=== PATIENT | male | born 1960 | race Caucasian/White ===

== ENCOUNTER 2023-07-23 19:38 | Emergency (ER) | payer OTHER, SELFPAY ==
[2023-07-23] VITALS (30 sets, daily range): BP systolic 100–139; BP diastolic 66–97; PULSE 78–96; RESP 14–28; TEMP 36.5; O2SAT 92–98; BMI 24.3
--- NOTE | 2023-07-23 19:51 | ED.CHESTPAI1 ---
HPI - Chest Pain General Chief Complaint: Chest Pain Stated Complaint: CHEST PAIN Time Seen by Provider: 07/23/23 19:46 Source: patient Mode of arrival: ambulance History of Present Illness HPI narrative: patient brought to ER by [facility] for chest pain. Patient has been drinking ETOH today and provides limited history. States he developed chest pain and then passed out. Past history of CABG and receives his care at [facility]. States he woke up and called 911. chest pain right anterior chest. He is also noted to have old ecchymosis lesions on his chest and left flank. He does not have any idea where these came from. He is not short of breath. No associated nausea or vomiting. MD complaint: Reports chest pain Pertinent past history: Reports coronary artery disease Related Data Home Medications Medication Instructions Recorded Confirmed aspirin 81 mg tablet,delayed 81 mg PO DAILY 07/23/23 07/23/23 release (Adult Aspirin Regimen) atorvastatin 80 mg tablet 80 mg PO QPM 07/23/23 07/23/23 carvedilol 3.125 mg tablet 3.125 mg PO BID 07/23/23 07/23/23 cholecalciferol (vitamin D3) 50 50 mcg PO DAILY 07/23/23 07/23/23 mcg (2,000 unit) capsule clopidogrel 75 mg tablet 75 mg PO DAILY 07/23/23 07/23/23 empagliflozin 25 mg tablet 25 mg PO QAM 07/23/23 07/23/23 hydroxyzine HCl 10 mg tablet 10 mg PO Q8H 07/23/23 07/23/23 isosorbide dinitrate 30 mg tablet 30 mg PO BID 07/23/23 07/23/23 loratadine 10 mg tablet (Allergy 10 mg PO DAILY 07/23/23 07/23/23 Relief (loratadine)) melatonin 3 mg capsule 3 mg PO DAILY 07/23/23 07/23/23 mirtazapine 30 mg tablet 30 mg PO DAILY 07/23/23 07/23/23 pantoprazole 40 mg tablet,delayed 40 mg PO QAM 07/23/23 07/23/23 release sacubitril 24 mg-valsartan 26 mg 1 tab PO BID 07/23/23 07/23/23 tablet tamsulosin 0.4 mg capsule 0.4 mg PO DAILY 07/23/23 07/23/23 Allergies Allergy/AdvReac Type Severity Reaction Status Date / Time Unable to Assess Allergy Verified 07/23/23 19:50 Review of Systems ROS Status of ROS 10 or more systems reviewed and unremarkable except as noted in history and below Cardiovascular Reports: chest pain PFSH PFS Social History Smoking status: Current every day smoker Exam Constitutional Vital Signs, click to edit/add: Last Vital Signs Temp 97.7 F 07/23/23 19:44 Pulse 81 07/23/23 19:44 Resp 15 07/23/23 19:44 BP 108/66 07/23/23 19:44 Pulse Ox 97 07/23/23 19:44 O2 Del Method Room Air 07/23/23 19:44 Common normals: no apparent distress (appears to be under the influence of alcohol. slow answers but appropriate), average body habitus and oriented x3 Eye Common normals: EOMs intact bilaterally, conjunctivae normal and no scleral icterus Chest Other: mild bruising right chest. chest wall is tender Respiratory Common normals: normal respiratory effort, no retractions, no use of accessory muscles and clear to auscultation bilaterally Cardio Common normals: regular rate, regular rhythm, S1 normal heart sound and S2 normal heart sound GI Common normals: Normal to inspection, nondistended, normoactive bowel sounds present, soft to palpation and non-tender Extremity Common normals: normal to inspection Neuro Common normals: oriented x3, CN's II-XII intact bilaterally, moves all extremities and no focal motor deficits Psych Appearance: grossly normal Course Vital Signs Vital signs: Vital Signs Temperature 97.7 F 07/23/23 19:44 Pulse Rate 81 07/23/23 19:44 Respiratory Rate 15 07/23/23 19:44 Blood Pressure 108/66 07/23/23 19:44 Pulse Oximetry 97 07/23/23 19:44 Oxygen Delivery Method Room Air 07/23/23 19:44 Temperature 97.7 F 07/23/23 19:44 Pulse Rate 81 07/23/23 19:44 Respiratory Rate 15 07/23/23 19:44 Blood Pressure 108/66 07/23/23 19:44 Pulse Oximetry 97 07/23/23 19:44 Oxygen Delivery Method Room Air 07/23/23 19:44 MDM - Chest Pain MDM Narrative Medical decision making narrative: patient presents after complaint of chest pain and syncope at home. Patient intoxicated and history limited. Girlfriend arrived later and reports that he dranks 1-2 fifths of alcohol daily. [facility] that [facility] has [facility]. States she often sees him fall when he is intoxicated at home. He was noted to have old ecchymotic bruising on his chest and abdomen and was not able to tell of why. CT abdomen without acute findings but did demonstrate contusion. CTA chest with findings of findings concerning for sequela of reflux esophagitis or GE wall lesion. Also findings of bronchitis/brronchiolitis and remote and recent rib fractures. recent rib fractures on the right that explain his complaint of right sided rib pain. EKG with LBBB. d-dimer elevated but CTA without PE. first troponin normal. alcohol level 279 and he has mild elevation of his ammonia level. In the time he has been in the department he is awake and communicating the entire time and joking with his girlfriend that he was just approved for 100% [facility] disability Discussed with the patient and his girlfriend the plan to place him in the hospital over night because he reported passing out. Girlfriend is certain he just fell again. His right chest wall pain is related to rib fracture He is not wanting to stay in the hospital. States he [facility] and will discuss with the [facility] also advised him and his girlfriend that he will need follow up regarding his esophagus . Given rocephin for his aspiration bronchitis/bronchiolitis and discharged home with a prescription for Ceftin Lab Data Labs: Lab Results 07/23/23 07/23/23 Range/Units 20:11 21:35 WBC 4.8 (4.0-11.0) 10^3/uL RBC 3.85 L (4.70-6.10) 10^6/uL Hgb 13.7 L (14.0-18.0) g/dL Hct 39.4 L (42.0-54.0) % MCV 102.3 H (80.0-94.0) fL MCH 35.6 H (25.9-34.0) pg MCHC 34.8 (29.9-35.2) g/dL RDW 12.2 (11.0-15.0) % Plt Count 197 (150-450) 10^3/uL MPV 8.8 L (9.5-13.5) fL Neut % (Auto) 43.9 (43.0-75.0) % Lymph % (Auto) 41.3 (20.5-60.0) % Glascock % (Auto) 9.7 (1.7-12.0) % Eos % (Auto) 3.2 (0.9-7.0) % Baso % (Auto) 1.5 (0.2-2.0) % Neut # (Auto) 2.1 (1.4-6.5) 10^3/uL Lymph # (Auto) 2.0 (1.2-3.8) 10^3/uL Glascock # (Auto) 0.5 (0.3-0.8) 10^3/uL Eos # (Auto) 0.2 (0.0-0.7) 10^3/uL Baso # (Auto) 0.1 (0.0-0.1) 10^3/uL Abs Immat Gran (auto) 0.02 (0.00-0.03) 10^3/uL Imm/Tot Granulo (auto) 0.4 (0.0-0.5) % PT 11.0 (9.0-11.6) sec INR 1.04 D-Dimer 3.80 H* (<=0.59) mg/L FEU Sodium 136 (136-145) mmol/L Potassium 3.5 (3.5-5.1) mmol/L Chloride 97 L (98-107) mmol/L Carbon Dioxide 27.9 (21.0-32.0) mmol/L Anion Gap 14.6 BUN 2.0 L (7.0-18.0) mg/dL Creatinine 0.67 L (0.70-1.30) mg/dL Est GFR ( Amer) >60 (>=60) Est GFR (Non-Af Amer) >60 (>=60) BUN/Creatinine Ratio 3.0 Glucose 88 (74-106) mg/dL Calcium 8.0 L (8.5-10.1) mg/dL Total Bilirubin 0.6 (0.2-1.0) mg/dL AST 105 H (15-37) U/L ALT 66 H (16-63) U/L Alkaline Phosphatase 106 (46-116) U/L Ammonia 35 H (11-32) umol/L Troponin I High Sens 15.9 (4.0-76.1) pg/mL NT-Pro-B Natriuret Pep 250.0 (<=900.0) pg/mL Total Protein 6.8 (6.4-8.2) g/dL Albumin 3.4 (3.4-5.0) g/dL Globulin 3.4 g/dL Albumin/Globulin Ratio 1.0 Urine Opiates Screen Negative (NEGATIVE) Ur Buprenorphine Scrn Negative (NEGATIVE) Ur Oxycodone Screen Negative (NEGATIVE) Urine Methadone Screen Negative (NEGATIVE) Ur Propoxyphene Screen Negative (NEGATIVE) Ur Barbiturates Screen Negative (NEGATIVE) U Tricyclic Antidepress Negative (NEGATIVE) Ur Phencyclidine Scrn Negative (NEGATIVE) Ur Amphetamines Screen Negative (NEGATIVE) U Methamphetamines Scrn Negative (NEGATIVE) U Benzodiazepines Scrn Negative (NEGATIVE) Urine Cocaine Screen Negative (NEGATIVE) U Cannabinoids Screen Positive A (NEGATIVE) Ethanol Quant 279 mg/dL Discharge Plan Discharge Chief Complaint: Chest Pain Clinical Impression: GERD with esophagitis, Fracture of rib, Alcohol intoxication, Aspiration pneumonia Patient Disposition: Home, Self-Care Prescriptions / Home Meds: No Action atorvastatin 80 mg tablet 80 mg PO QPM hydroxyzine HCl 10 mg tablet 10 mg PO Q8H pantoprazole 40 mg tablet,delayed release (DR/EC) 40 mg PO QAM cholecalciferol (vitamin D3) 50 mcg (2,000 unit) capsule 50 mcg PO DAILY carvedilol 3.125 mg tablet 3.125 mg PO BID Rx Instructions: must administer with a meal/food melatonin 3 mg capsule 3 mg PO DAILY loratadine [Allergy Relief (loratadine)] 10 mg tablet 10 mg PO DAILY aspirin [Adult Aspirin Regimen] 81 mg tablet,delayed release (DR/EC) 81 mg PO DAILY sacubitril-valsartan 24-26 mg tablet 1 tab PO BID mirtazapine 30 mg tablet 30 mg PO DAILY tamsulosin 0.4 mg capsule 0.4 mg PO DAILY empagliflozin 25 mg tablet 25 mg PO QAM isosorbide dinitrate 30 mg tablet 30 mg PO BID Rx Instructions: allow nitrate-free interval of 12-14 hrs per 24-hr period clopidogrel 75 mg tablet 75 mg PO DAILY Instructions: Rib Fracture (ED), Aspiration Pneumonia (DC), GERD (Gastroesophageal Reflux Disease) (ED), Abuse of Alcohol (ED) Additional Instructions: [facility] and acid reflux and your pneumonia. Stand Alone Forms: Portal Instructions Referrals: Physician,Non-Staff, MD [Primary Care Provider] - 1 week
--- NOTE | 2023-07-23 19:57 | ECG_ITS ---
[facility] Test Date: 2023-07-23 Pat Name: CARLOS WILDER Department: Room: - Gender: Male [employer]: : 1960 Requested By: DAISHA ROMANO Order Number: [id number] Reading MD: DAISHA ROMANO Measurements Intervals [place] Rate: 78 P: -30 ID: 118 QRS: 4 QRSD: 152 T: 111 QT: 454 QTc: 487 Interpretive Statements 1100 Sinus rhythm LEFT BUNDLE BRANCH BLOCK 2210 Short ID interval 2217 Type-B [id number] syndrome 9150 abnormal ECG No previous ECG available for comparison Electronically Signed On 07-24-2023 13:11:08 EDT by DAISHA ROMANO
--- NOTE | 2023-07-23 19:57 | XR_ITS ---
The [address] [address] Patient Name: CARLOS WILDER MRN: [id number] date: 1960 Sex: M Assigned Patient Location: ER Current Patient Location: ER Accession/Order Number: [id number] Exam Date: 07/23/2023 20:15 Report Date: 07/23/2023 21:16 At the request of: MILES CULVER Procedure: XR chest 1V EXAM: XR chest 1V HISTORY: chest pain syncopal episode. COMPARISON: None. TECHNIQUE: Chest X-ray, 1 view. FINDINGS: Support devices: None. Lungs/pleura: No radiographic evidence of edema or infiltrate. No consolidation, effusion, or pneumothorax. Heart and mediastinum: Cardiac silhouette is near the upper limit of normal for size. Unremarkable mediastinal contours. Sternotomy wires. Bones: No acute abnormality identified. XR/XR chest 1V IMPRESSION: No active disease. Electronically authenticated by: KEISHA ARGUETA Date: 07/23/2023 21:16
[2023-07-23 20:20] LABS: Basophils Absolute Auto 0.1 10^3/uL (0.0-0.1); Basophils Percent Auto 1.5 % (0.2-2.0); Eosinophils Absolute Auto 0.2 10^3/uL (0.0-0.7); Eosinophils Percent Auto 3.2 % (0.9-7.0); Hematocrit 39.4 % (42.0-54.0); Hemoglobin 13.7 g/dL (14.0-18.0); Immature Granulocytes Abs Auto 0.02 10^3/uL (0.00-0.03); Immature Granulocytes Pct Auto 0.4 % (0.0-0.5); Lymphocytes Percent Auto 41.3 % (20.5-60.0); Mean Corpuscular HGB Conc 34.8 g/dL (29.9-35.2); Mean Corpuscular Hemoglobin 35.6 pg (25.9-34.0); Mean Corpuscular Volume 102.3 fL (80.0-94.0); Mean Platelet Volume 8.8 fL (9.5-13.5); Monocytes Absolute Auto 0.5 10^3/uL (0.3-0.8); Monocytes Percent Auto 9.7 % (1.7-12.0); Neutrophils Absolute Auto 2.1 10^3/uL (1.4-6.5); Neutrophils Percent Auto 43.9 % (43.0-75.0); Platelet Count 197 10^3/uL (150-450); Red Blood Count 3.85 10^6/uL (4.70-6.10); Red Cell Distribution Width 12.2 % (11.0-15.0); White Blood Count 4.8 10^3/uL (4.0-11.0)
[2023-07-23 20:32] LABS: Ethanol 279 mg/dL
[2023-07-23 20:33] LABS: Ammonia 35 umol/L (11-32)
[2023-07-23 20:38] LABS: Alanine Aminotransferase 66 U/L (16-63); Albumin Level 3.4 g/dL (3.4-5.0); Alkaline Phosphatase 106 U/L (46-116); Anion Gap 14.6; Aspartate Amino Transferase 105 U/L (15-37); Bilirubin Total 0.6 mg/dL (0.2-1.0); Carbon Dioxide 27.9 mmol/L (21.0-32.0); Chloride 97 mmol/L (98-107); Estimated GFR (African America >60 (>=60); Estimated GFR (Non-African Ame >60 (>=60); Globulin 3.4 g/dL; Glucose 88 mg/dL (74-106); Potassium 3.5 mmol/L (3.5-5.1); Sodium 136 mmol/L (136-145); Total Protein 6.8 g/dL (6.4-8.2)
[2023-07-23 20:43] LABS: INR 1.04
[2023-07-23 20:45] LABS: Troponin I High Sensitivity 15.9 pg/mL (4.0-76.1)
--- NOTE | 2023-07-23 20:46 | CT_ITS ---
[address] [address] Patient Name: CARLOS WILDER MRN: [id number] date: 1960 Sex: M Assigned Patient Location: ER Current Patient Location: ER Accession/Order Number: [id number] Exam Date: 07/23/2023 21:10 Report Date: 07/23/2023 22:34 At the request of: MILES CULVER Procedure: CT abdomen pelvis w con EXAM: CT abdomen pelvis w con HISTORY: abdominal pain/abdominal wall bruising in the setting of alcohol abuse COMPARISON: CTA chest 07/23/2023 TECHNIQUE: CT of the abdomen and pelvis with intravenous contrast. Dose reduction techniques were achieved by using automated exposure control and/or adjustment of mA and/or kV according to patient size and/or use of iterative reconstruction technique. FINDINGS: TUBES AND IMPLANTS: None. LOWER CHEST: Small hiatal hernia ABDOMEN and PELVIS ABDOMINAL WALL AND SOFT TISSUES: Unremarkable. BONES: No suspicious lesions. Multilevel degenerative changes of the spine. ARTERIES: Severe aortoiliac atherosclerosis without aneurysm VEINS: Unremarkable. LYMPH NODES: Unremarkable. PERITONEUM/ RETROPERITONEUM: Unremarkable. BOWEL: No obstruction. Mild colonic diverticula without surrounding inflammatory changes. APPENDIX: Unremarkable LIVER: Unremarkable. GALLBLADDER: Unremarkable. BILE DUCTS: Not dilated SPLEEN: Unremarkable. PANCREAS: Unremarkable. ADRENALS: Unremarkable. KIDNEYS/ URETERS: Multiple bilateral renal calcifications, some of which may represent vascular calcifications. No hydronephrosis. REPRODUCTIVE ORGANS: Mild prostatomegaly URINARY BLADDER: Moderately dilated. CT/CT abdomen pelvis w con IMPRESSION: 1. No evidence of acute traumatic injury to the abdomen or pelvis. 2. Mild diverticulosis. 3. Multiple bilateral renal calcifications, some of which may represent vascular calcifications. No hydronephrosis. 4. Mild prostatomegaly. 5. Moderately dilated bladder. 6. Small hiatal hernia. Electronically authenticated by: TORREY RAMIREZ Date: 07/23/2023 22:34
--- NOTE | 2023-07-23 20:46 | CT_ITS ---
The [address] [address] Patient Name: CARLOS WILDER MRN: [id number] date: 1960 Sex: M Assigned Patient Location: ER Current Patient Location: ER Accession/Order Number: [id number] Exam Date: 07/23/2023 21:10 Report Date: 07/23/2023 22:34 At the request of: MILES CULVER Procedure: CT angio chest EXAM: CT angio chest HISTORY: syncope elevated d-dimer. COMPARISON: CT chest 07/19/2022 TECHNIQUE: Multiple axial views CT angiogram chest after administration of 100 mL Omnipaque 350 IV contrast. Coronal sagittal reformats. 3-D reconstruction. MIP and/or similar series performed. FINDINGS: No evidence for acute pulmonary embolism from the main pulmonary artery to the bilateral segmental pulmonary artery level. The bilateral subsegmental pulmonary arteries are not well opacified by contrast and are not well evaluated. No thoracic aortic aneurysm or aortic dissection. Extensive left and right coronary artery calcifications and/or stents. Prior sternotomy and CABG. No enlarged heart size or large pericardial effusion. Moderate bilateral upper lobe paraseptal and centrilobular emphysema. Multiple small endobronchial densities/frothy secretions within the left bronchus and bronchiole airway. No lung consolidation, large pleural effusions, pneumothorax, or suspicious groundglass lung infiltrates. 4 mm noncalcified pulmonary nodule of the left posterior upper lobe (image 34 series 5), similar to CT 07/19/2022. Other small lung nodules are unchanged. Moderate circumferential esophageal wall thickening from the thoracic inlet to the gastroesophageal junction. Small hiatal hernia. No extraluminal free fluid or free air. Partially visualized right anterior abdominal subcutaneous stranding reflecting contusive injury in the proper clinical setting. Right anterior fourth and fifth ribs nondisplaced fractures are recent or acute. Other bilateral subacute and remote bilateral ribs fracture deformities are seen. CT/CT angio chest IMPRESSION: No evidence for acute pulmonary embolism from the main pulmonary artery to the bilateral segmental pulmonary artery level. The bilateral subsegmental pulmonary arteries are not well opacified by contrast and are not well evaluated. Moderate circumferential esophageal wall thickening from the thoracic inlet to the gastroesophageal junction. Small hiatal hernia. No extraluminal free fluid or free air. Findings are concerning for sequela of reflux/esophagitis or gastroesophageal wall lesion. Close clinical attention recommended. Upper endoscopy can further evaluate. Multiple small endobronchial densities/frothy secretions within the left bronchus and bronchiole airway. Finding reflects mucus or aspirated fluid with bronchitis/bronchiolitis. Recommend short interval CT chest within 2-3 months follow-up to ensure resolution and no underlying endobronchial lesion. Partially visualized right anterior abdominal subcutaneous stranding reflecting contusive injury in the proper clinical setting. Right anterior fourth and fifth ribs nondisplaced fractures are recent or acute. Multiple other subacute and remote bilateral ribs fracture deformities are seen. Extensive left and right coronary artery calcifications and/or stents. Prior sternotomy and CABG. Electronically authenticated by: JEAN CARLOS CHURCH Date: 07/23/2023 22:34
[2023-07-23] MEDS: 0.9 % SODIUM CHLORIDE 1,000 ML 999 ML IV (21:12)
[2023-07-23 21:58] LABS: Amphetamine Screen Urine NEGATIVE (NEGATIVE); Barbiturates Screen Urine NEGATIVE (NEGATIVE); Benzodiazepines Screen Urine NEGATIVE (NEGATIVE); Buprenorphine Screen Urine NEGATIVE (NEGATIVE); Cannabinoid Screen Urine POSITIVE (NEGATIVE); Cocaine Screen Urine NEGATIVE (NEGATIVE); Methadone Screen Urine NEGATIVE (NEGATIVE); Methamphetamines Screen Urine NEGATIVE (NEGATIVE); Opiate Screen Urine NEGATIVE (NEGATIVE); Oxycodone Screen Urine NEGATIVE (NEGATIVE); Phencyclidine Screen Urine NEGATIVE (NEGATIVE); Tricyclic Antidepressant Urine NEGATIVE (NEGATIVE)
[2023-07-23] MEDS: CEFTRIAXONE 1,000 MG in 0.9 % SODIUM CHLORIDE 50 ML 100 MG IV (23:14)
== END 2023-07-23 23:52 | disposition home or self-care (01) ==
PROVIDERS: Emergency Provider Internal Medicine
DX: S22.41XA Multiple fractures of ribs, right side, initial encounter for closed fracture (principal); K21.9 Gastro-esophageal reflux disease without esophagitis; K20.90 Esophagitis, unspecified without bleeding; J69.0 Pneumonitis due to inhalation of food and vomit; F10.129 Alcohol abuse with intoxication, unspecified; Y90.8 Blood alcohol level of 240 mg/100 ml or more; W19.XXXA Unspecified fall, initial encounter; Z95.1 Presence of aortocoronary bypass graft; Z79.82 Long term (current) use of aspirin; Z79.899 Other long term (current) drug therapy; F17.210 Nicotine dependence, cigarettes, uncomplicated; I44.7 Left bundle-branch block, unspecified; R79.89 Other specified abnormal findings of blood chemistry
CPT/HCPCS: 36415; 71045; 71275; 74177; 80053; 80307; 80320; 82140; 83880; 84484; 85025; 85378; 85610; 93005; 99285; Q9967